=== PATIENT | male | born 1960 | race Caucasian/White ===

== ENCOUNTER 2018-02-09 06:33 | Emergency (ER) | payer OTHER ==
[~2018-02-09] VITALS: Ht 193 cm; Wt 93.0 kg
[~2018-02-09 06:33] MED LIST: BUPR150T2 PO; CRUTCH4 USE; CYCL10 PO; DICL75ER PO; ERYT1OIN LEFTEYE; NAPR250 PO; PERM5TC TOP; TRAM50 PO
[2018-02-09] MEDS ORDERED: IBUP600 PO (08:53)
== END 2018-02-09 09:06 | disposition home or self-care (01) ==
LOC: ER 06:33
DX: M70.21 Olecranon bursitis, right elbow (principal)
CPT/HCPCS: 20605; 73080; 99283-25